=== PATIENT | female | born 1955 | race Caucasian/White ===

== ENCOUNTER → 2021-04-23 | Outpatient (CLI) | payer OTHER ==
--- NOTE | 2021-04-23 13:41 | KCIC ---
EXAMINATION: Magnetic resonance imaging (MRI) of the lumbar spine without contrast 04/23/2021 10:55 AM HISTORY: Lumbago with left sciatica. TECHNIQUE: Multiplanar multi-weighted MRI of the lumbar spine was performed without intravenous contr ast using the standard lumbar spine protocol. Contrast information: None administered. COMPARISON: None available. FINDINGS: There is 1 mm retrolisthesis of L1 on L2. 3 mm retrolisthesis of L2 on L3. 3 mm retrolisthesis of L3 on L4. There is 7 mm ventral listhesis of L4 on L5. There is disc desiccation from L2-L3 through L5-S 1. Modic type I endplate degenerative changes identified anteriorly at L2-L3. Modic type I endplate d egenerative changes identified at L5-S1. No acute fractures identified. Conus medullaris limits of L1 . Distal spinal cord signal intensity is normal in all sequences. Abdominal aorta is ectatic measurin g 2.3 cm. No suspicious retroperitoneal abnormality. Tarlov cyst identified at S2-S3 measuring 2.1 cm . T11-T12: There is a disc bulge with left foraminal disc protrusion. Moderate left and mild right neur oforaminal stenosis. Mild spinal canal stenosis. T12-L1: There is a disc bulge with central annular fissure. No significant facet arthropathy. No neur oforaminal or spinal canal stenosis. L1-L2: There is a circumferential disc bulge with right central disc extrusion. Mild facet arthropath y. Mild left neuroforaminal stenosis. Mild spinal canal stenosis. L2-L3: There is a circumferential disc bulge with right central disc protrusion. No significant facet arthropathy. Mild bilateral neuroforaminal stenosis. Mild spinal canal stenosis. L3-L4: There is a circumferential disc bulge with left far lateral disc protrusion. Mild facet arthro mike. Moderate left and moderate neuroforaminal stenosis. Mild spinal canal stenosis. L4-L5: There is moderate disc bulge. Severe facet arthropathy. There is an anteriorly and laterally p rojecting synovial cyst measuring 7 mm arising from the left facet joint. Moderate spinal canal steno sis. There is left lateral recess. Mild left neural foraminal stenosis. L5-S1: There is a circumferential disc bulge with left far lateral disc osteophyte complex. Moderate right and mild left neuroforaminal stenosis. Severe right and moderate left foraminal stenosis. No sp inal canal stenosis. IMPRESSION: Moderate degenerative changes of the lumbar spine as described in detail above. Electronically signed by: Vera Simeon MD (04/23/2021 1:38 PM) [id number]
== END ==
LOC: KCIC MRI 10:42
PROVIDERS: ATTEND Physician Assistant Medical
DX: M51.27 Other intervertebral disc displacement, lumbosacral region (principal); M25.78 Osteophyte, vertebrae; M48.07 Spinal stenosis, lumbosacral region; G96.191 Perineural cyst; M48.8X6 Other specified spondylopathies, lumbar region; M43.16 Spondylolisthesis, lumbar region; I77.811 Abdominal aortic ectasia; M54.42 Lumbago with sciatica, left side
CPT/HCPCS: 72148

== ENCOUNTER → 2021-05-27 | Outpatient (CLI) | payer OTHER ==
[~2021-05-27] MED LIST: ALBU2.5V8 IH; CRESTOR5 MG PO; ESCITALOPRAM OX10 MG PO; FLUT1DIS5 IH; HYDR-2765 PO; IOHEXOL 180 MG/ML 10 ML VIAL. ONE; LEVO75TA76 PO; OMEP40CA7 PO; methylPREDNISolone ACETATE 80 MG/ML VIAL. ONE
--- NOTE | 2021-05-27 14:29 | PDOC1 ---
INITIAL PAIN CONSULT DATE OF SERVICE: DOS: DATE: 05/27/21 TIME: 14:22 CHIEF COMPLAINT: Chief Complaint: Low back and left lower extremity pain HISTORY OF PRESENT ILLNESS: 65-year-old female presents with history of pain low back left lower extremity for about 6 months worse with some pain over the years in the low back and leg but much more significant over the past 6 months and more noticeable with it not going away with usual things like stretching and resting patient reports the pain is in the low back rating left lower extremity posterior gluteus lateral thigh anterior thigh anteromedial thigh medial knee and medial lower leg patient reports is worse with walking standing changing positions better with sitting or laying down but wakes her from sleep at least 2-3 times at night patient reports is not effective bowel bladder control but does affect ability to walk and she stumbled and fallen once because of the left leg being fatigued and weak and bruised her ribs on the right side when she fell patient been taking hydrocodone which does help but to some extent maybe 40 to 50% but only for limited time. Patient is also been trying [id number] Tylenol as well as Motrin but without significant reduction in pain with either of these. Patient scribes the pain as sharp and stabbing throbbing in the back shooting in the leg on the left side changes during the day worse with activity standing walking is a burning sensation in the back itself an aching sensation in the back especially when standing still for more than about 5 to 10 minutes the pain becomes excruciating. Patient can sit down to decrease the pain but take several minutes for her to get better. Patient rates her disability rating 0-10 10 being the worst as an 8 to 9 feet home responsibilities 8 with social activity 8-9 with occupation and life support activity 10 with sexual behavior and 10 with self-care activities. Patient has had some physical therapy in the distant past and is still doing some stretching 3 exercise but has had no formal therapies or other treatments at this time. Patient of MRI scan lumbar spine showing moderate degenerative changes most significant L4-5 with moderate spinal canal stenosis and left lateral recess stenosis with mild left neuroforaminal stenosis L5-S1 shows severe right and moderate left foraminal stenosis as well. Patient reports no bowel or bladder incontinence. PAST MEDICAL HISTORY: PMH: COPD, asthma, arthritis, cigarette smoking PREVIOUS SURGERIES: Past Surgical Hx: Tubal ligation 1982, appendectomy 2005 CURRENT MEDICATIONS: Current Meds: Active Scripts Medications Dose Route/Sig Max Daily Dose Days Date Category Advair 500-50 Diskus (Fluticasone/Salmeterol) 1 Each Disk.w.dev 1 Puff IH BID 05/27/21 Reported Omeprazole 40 Mg Capsule.dr 1 Cap PO DAILY 05/27/21 Reported Euthyrox (Levothyroxine Sodium) 75 Mcg Tablet 75 Mcg PO DAILY 05/27/21 Reported Proair Hfa Inhaler (Albuterol Sulfate) 8.5 Gm Hfa.aer.ad 2 Puff IH PRN Q4-6HRS PRN 21 05/27/21 Reported Escitalopram Oxalate 10 Mg Tablet 1 Tab PO DAILY 05/27/21 Reported Crestor (Rosuvastatin Calcium) 5 Mg Tablet 10 Mg PO HS 05/27/21 Reported Hydrocodone-Apap 7.5-325 (Hydrocodone Bit/Acetaminophen) 1 Tab Tablet 1 Tab PO PRN Q6HRS PRN 05/27/21 Reported ALLERGIES; Allergies: Coded Allergies: aspirin (Verified Allergy, Intermediate, Hives, 05/27/21) codeine (Verified Allergy, Intermediate, Rash, 05/27/21) morphine (Verified Allergy, Intermediate, Hives, 05/27/21) Uncoded Allergies: bandages (Allergy, Intermediate, Rash, 05/27/21) FAMILY HISTORY: Family Hx: No major medical problems or conditions that she is aware of. SOCIAL HISTORY: Social Hx: Patient is alcohol occasionally socially, smokes cigarettes approximate one third of a pack for the past 20 years continues to smoke, denies any illegal illicit or recreational drugs is single lives with her significant other and lives locally in [facility]. Patient works as a library circulation clerk in [place] and is on her feet most of her working shift. REVIEW OF SYSTEMS: ROS: Positive for those items mentioned in history of present illness, all systems are reviewed, otherwise negative ,and are complete full and well-documented on patient's chart. PHYSICAL EXAM: VS: Blood pressure is 131/63 pulse 88 respirations 18, temperature 99.0 F height is 5 feet 7 inches, weight is 158 pounds. PE: PHYSICAL EXAMINATION: GENERAL: The patient is awake, alert, oriented, appropriate, very pleasant in demeanor HEENT: Shows normocephalic, atraumatic. Extraocular movements are intact and symmetrical. Oral cavity: Mucous membranes moist and pink. Dentition is inta ct. NECK: Shows anterior throat supple without palpable lymphadenopathy noted. Swallow reflex symmetrical. CHEST: Shows normal on inspection. Breath sounds are clear bilaterally, distant and coarse but no rales or rhonchi or wheezes auscultated. HEART: Shows S1, S2 clear. No murmurs auscultated. ABDOMEN: Soft, nontender, nondistended. No palpable organomegaly is noted. No rebound or guarding demonstrated. BACK: Shows spine grossly in the midline. Normal-appearing cervical lordotic curvature. There is mildly increased thoracic kyphosis, some minor flattening of the lumbar lordotic curvature. Lumbar paraspinous muscles show symmetrical on inspection, on palpation shows some moderate tenderness diffusely throughout the upper, middle and lower distribution of the paraspinous muscles bilaterally and also into the lower thoracic paraspinous musculature, firm and tender, but without specific trigger points, without radiation of pain. The patient has good rotational motion of the lumbar spine, both laterally as well as extension and flexion without significant difficulty. No tenderness over the spinous processes, sacrum or sacroiliac regions. EXTREMITIES: Lower extremities show deep tendon reflexes 2 per in the patellar and tendo calcaneus tendons. Motor exam is 5 on a scale of 5 with right dorsiflexion, extension, quadriceps and hamstring flexion and 4/5 on the left. Peripheral pulses are 1+ posterior tibial. No peripheral edema is noted bilaterally. Lower extremities are warm and dry to touch, equal in color and appearance. Straight leg raise noted to be positive on the left at approximate 40 degrees, decreased with knee flexion, right side is negative. Gaenslen's and Jett's maneuvers are negative bilaterally as well. The patient is able to stand, stand on her toes without significant difficulty loss of balance, walks with a normal-appearing gait slightly favoring the left lower extremity not use any assistive devices to ambulate such as canes or walkers. SKIN: Shows warm and dry, good turgor. No edema. No sores, rashes or bruising throughout. IMPRESSION: Impression: 65-year-old female with proximate 6-month history increasing pain low back left lower extremity radicular fashion. MRI scan lumbar spine as noted Arthritis COPD Plan: Options were discussed with patient including serve medical managements physical therapies and interventional techniques. Patient would like to pursue interventional techniques. We discussed a lumbar epidural steroid injection using description as well as anatomical models to describe the procedure. Risks were discussed including but not limited to: Bleeding, infection, possibility of epidural hematoma and subsequent neurological compromise, dural puncture, headaches, spinal cord and/or nerve damage, side effects of steroid medication, and poor results regarding pain control. Patient understands and wished to pro ceed. Patient will return to the clinic in approximately 2 weeks for follow-up, was counseled as to return appointment, activity level, and side effect to be aware of. Procedure is lumbar epidural steroid injection under local anesthetic using sterile prep and drape at the L4-5 level using C-arm fluoroscopic guidance in both AP and lateral views medications injected is 120 mg Depo-Medrol +10mL preservative-free normal saline and 2 mL contrast- condition at discharge is stable patient tolerated procedure well had no complications. JOSÉ MIGUEL TOM MD May 27, 2021 14:29
--- NOTE | 2021-05-27 14:30 | PDOC4 ---
Procedure Note: ICD 10 Code: ICD 10 Code: M54.16 M51.36 M 48.06 Procedure Note: Patient was consented for lumbar epidural steroid injection with fluoroscopic guidance. Risks were discussed including but not limited to: Bleeding, infection, possibility of epidural hematoma and subsequent neurological compromise, dural puncture, headaches, spinal cord and/or nerve damage, side effects of steroid medication, and poor results regarding pain control. Patient understands and wished to proceed. Procedure is lumbar epidural steroid injection under local anesthetic using naresh rile prep and drape at the L4-5 level using C-arm fluoroscopic guidance in both AP and lateral views medications injected is 120 mg Depo-Medrol +10mL preservative-free normal saline and 2 mL contrast- condition at discharge is stable patient tolerated procedure well had no complications. JOSÉ MIGUEL TOM MD May 27, 2021 14:30
== END | disposition home or self-care (01) ==
LOC: PNCL 12:58
PROVIDERS: ATTEND Anesthesiology
DX: M51.16 Intervertebral disc disorders with radiculopathy, lumbar region (principal); M48.061 Spinal stenosis, lumbar region without neurogenic claudication; Z79.899 Other long term (current) drug therapy; Z88.5 Allergy status to narcotic agent; Z88.6 Allergy status to analgesic agent; Z88.8 Allergy status to other drugs, medicaments and biological substances
CPT/HCPCS: 62323; J1040; Q9965

== ENCOUNTER → 2021-06-10 | Outpatient (CLI) | payer OTHER ==
[~2021-06-10] MED LIST changes: +DEXAMETHASONE PRES.FREE 10 MG/ML VIAL. ONE; -methylPREDNISolone ACETATE 80 MG/ML VIAL. ONE
--- NOTE | 2021-06-10 14:11 | PDOC ---
Progress Note - Pain Clinic Date of Service: DOS: DATE: 06/10/21 TIME: 14:05 Diagnosis: Dx: Lumbar radiculopathy with lumbar degenerative disc disease and lumbar spinal stenosis History or Present Illness: HPI: 65-year-old female returns for follow-up status post lumbar epidural steroid injection May 27, 2021 patient did very well with about 50% improvement in the low back and left lower extremity pain patient reports new pain however in the mid back now mostly when she is standing and especially when she is preparing meals such as at her kitchen sink patient reports is becoming a burning searing pain in the low back which did not have before there was some pain across the lower back this is in the mid back she becoming more noticeable with time patient reports is better with sitting or lying down does not have disturbing her from sleep patient reports pain in the leg is significantly improved but still with some radiation the posterior gluteus lateral thigh anterior thigh medial thigh medial lower leg describes aching and sharp in the leg shooting in the leg burning and severe in the back on and off in intensity but again exacerbated by standing patient reports some mild spasms and cramping in the low back as well which are inconsistent patient reports it is a 6-7 on scale of ten, and is at its worst, and average and least and a 6-7 today as well. Patient reports no loss of motor function no bowel or bladder incontinence. Physical Exam: VS: Blood pressure is 162/77 pulse is eighty respirations sixteen temperature is 98.7 F height is 5 feet 7 inches weight is 163 pounds. PE: PHYSICAL EXAMINATION: GENERAL: The patient is awake, alert, oriented, appropriate, very pleasant demeanor HEENT: Shows normocephalic, atraumatic. Extraocular movements are intact and symmetrical. Oral cavity: Mucous membranes moist and pink. Dentition is intact. NECK: Shows anterior throat supple without palpable lymphadenopathy noted. Swallow reflex symmetrical. CHEST: Shows normal on inspection. Breath sounds are clear bilaterally, coarse but no rales or rhonchi auscultated. HEART: Shows S1, S2 clear. No murmurs auscultated. ABDOMEN: Soft, nontender, nondistended. No palpable organomegaly is noted. No rebound or guarding demonstrated. BACK: Shows spine grossly in the midline. Normal-appearing cervical lordotic curvature. There is slightly increased thoracic kyphosis, some mild flattening of the lumbar lordotic curvature. Lumbar paraspinous muscles show symmetrical on inspection, on palpation shows some moderate tenderness diffusely throughout the upper, middle and lower distribution of the paraspinous muscles without specific trigger points, without radiation of pain. The patient has good rotational motion of the lumbar spine, both laterally as well as extension and flexion without significant difficulty. No tenderness over the spinous processes, sacrum or sacroiliac regions. EXTREMITIES: Lower extremities show deep tendon reflexes 2+ in the patellar and tendo calcaneus tendons. Motor exam is five on a scale of 5 with right dorsiflexion, extension, quadriceps and hamstring flexion and four/5 on the left. Peripheral pulses are 1+ posterior tibial. No peripheral edema is noted bilaterally. Lower extremities are warm and dry. SKIN: Shows warm and dry, good turgor. No edema. No sores, rashes or bruising throughout. Procedure: Procedure: Options were discussed with the patient. Patient's old chart was reviewed as her current medication regimen updated her review of systems updated today as well. We will proceed with a lumbar epidural steroid injection today with fluoroscopic guidance. Risks were discussed including but not limited to: Bleeding, infection, possibility of epidural hematoma and subsequent neurological compromise, dural puncture, headaches, spinal cord and/or nerve damage, side effects of steroid medication, and poor results regarding pain control. Patient understands and wished to proceed. Patient will return to the clinic in approximate 2 weeks for follow-up, was counseled as to return appointment, active level, and side effects to be aware of. We discussed strengthening stretching exercises to do with her low and mid back as well as heat and massage applications patient also will take ibuprofen three times daily instead of intermittently as she had been previously to see if this may help the mid back pain as well. Medication Injected: Med Injected: Procedure is lumbar epidural steroid injection under local anesthetic using sterile prep and drape at the L4-5 level using C-arm fluoroscopic guidance in both AP and lateral views medications injected is 20 mg dexamethasone +10mL preservative-free normal saline and 2 mL contrast- condition at discharge is stable patient tolerated procedure well had no complications. Condition at Discharge: Condition at Discharge: Condition at discharge stable, paced tolerated procedure well and had no complications. JOSÉ MIGUEL TOM MD Jun 10, 2021 14:11
--- NOTE | 2021-06-10 14:12 | PDOC4 ---
Procedure Note: ICD 10 Code: ICD 10 Code: M54.16 M51.36 M4 8.06 Procedure Note: Patient was consented for lumbar epidural steroid injection with fluoroscopic guidance. Risks were discussed including but not limited to: Bleeding, infection, possibility of epidural hematoma and subsequent neurological compromise, dural puncture, headaches, spinal cord and/or nerve damage, side effects of steroid medication, and poor results regarding pain control. Patient understands and wished to proceed. Procedure is lumbar epidural steroid injection under local anesthetic using naresh rile prep and drape at the L4-5 level using C-arm fluoroscopic guidance in both AP and lateral views medications injected is 20 mg dexamethasone +10mL preservative-free normal saline and 2 mL contrast- condition at discharge is stable patient tolerated procedure well had no complications. JOSÉ MIGUEL TOM MD Jun 10, 2021 14:12
== END | disposition home or self-care (01) ==
LOC: PNCL 12:49
PROVIDERS: ATTEND Anesthesiology
DX: M51.16 Intervertebral disc disorders with radiculopathy, lumbar region (principal); M48.061 Spinal stenosis, lumbar region without neurogenic claudication; Z79.899 Other long term (current) drug therapy; Z88.5 Allergy status to narcotic agent; Z88.6 Allergy status to analgesic agent; Z88.8 Allergy status to other drugs, medicaments and biological substances
CPT/HCPCS: 62323; J1100; Q9965

== ENCOUNTER → 2021-07-09 | Outpatient (CLI) | payer OTHER ==
--- NOTE | 2021-07-09 12:04 | PDOC ---
Progress Note - Pain Clinic Date of Service: DOS: DATE: 07/09/21 TIME: 12:01 Diagnosis: Dx: Lumbar radiculopathy with lumbar degenerative disease and lumbar spinal stenosis History or Present Illness: HPI: 65-year-old female returns for follow-up status post lumbar epidural steroid injection x2 last seen June 10, 2019 patient did very well about 60% improvement overall with pain in the low back and left lower extremity. Patient reports the pain is returning however in the low back and left leg posterior gluteus posterior lateral thigh lateral anterior thigh anteromedial thigh into the knee on the left side initially doing much better distance walking doing household activities try with greater ease and comfort as well as standing for prolonged periods and using less of her oral pain medications as well but now the pain is returning she is back to near baseline patient reports is an 8-9 at all times average worst and least is 8-[address] is sharp and dull in the back burning stabbing the leg radiating and shooting and worse with standing walking changing positions patient reports is better with laying down but is been waking her from sleep about every 4-5 hours once again recently. Patient reports no bowel or bladder incontinence. Physical Exam: VS: Blood pressure is 136/97 pulse 90 respirations 18 temperature 98.6 F height 5 feet 7 inches weight 164 pounds. PE: PHYSICAL EXAMINATION: GENERAL: The patient is awake, alert, oriented, appropriate, very pleasant in demeanor HEENT: Shows normocephalic, atraumatic. Extraocular movements are intact and symmetrical. Oral cavity: Mucous membranes moist and pink. Dentition is intact. NECK: Shows anterior throat supple without palpable lymphadenopathy noted. Sw allow reflex symmetrical. CHEST: Shows normal on inspection. Breath sounds are clear bilaterally, no rales rhonchi or wheezes. HEART: Shows S1, S2 clear. No murmurs auscultated. ABDOMEN: Soft, nontender, nondistended. No palpable organomegaly is noted. BACK: Shows spine grossly in the midline. Normal-appearing cervical lordotic curvature. There is slightly increased thoracic kyphosis, some mild flattening of the lumbar lordotic curvature. Lumbar paraspinous muscles show symmetrical on inspection, on palpation shows some moderate tenderness diffusely throughout the upper, middle and lower distribution of the paraspinous muscles without specific trigger points, without radiation of pain. The patient has good rotational motion of the lumbar spine, both laterally as well as extension and flexion without significant difficulty. EXTREMITIES: Lower extremities show deep tendon reflexes 2+ in the patellar and tendo calcaneus tendons. Motor exam is 5 on a scale of 5 with right dorsiflexion, extension, quadriceps and hamstring flexion and 4/5 on the left. Peripheral pulses are 1+ posterior tibial. No peripheral edema is noted bilater ally. Lower extremities are warm and dry. SKIN: Shows warm and dry, good turgor. No edema. No sores, rashes or bruising throughout. Procedure: Procedure: Options were discussed with the patient. Patient's old chart was reviewed as was her current medication regimen updated, and current review of systems updated today as well. We will proceed with a lumbar epidural steroid injection today with fluoroscopic guidance. Risks were discussed including but not limited to: Bleeding, infection, possibility of epidural hematoma and subsequent neurological compromise, dural puncture, headaches, spinal cord and/or nerve damage, side effects of steroid medication, and poor results regarding pain control. Patient understands and wished to proceed. Patient will return to clinic in approximately 2 weeks for follow-up, was counseled as to return appointment, activity level, and side effects to be aware of. Medication Injected: Med Injected: Procedure is lumbar epidural steroid injection under local anesthetic using sterile prep and drape at the L4-5 level using C-arm fluoroscopic guidance in both AP and lateral views medications injected is 20 mg dexamethasone +10mL preservative-free normal saline and 2 mL contrast- condition at discharge is stable patient tolerated procedure well had no complications. Condition at Discharge: Condition at Discharge: Condition at discharge stable, paced tolerated procedure well and had no c omplications. JOSÉ MIGUEL TOM MD Jul 09, 2021 12:03
--- NOTE | 2021-07-09 12:04 | PDOC4 ---
Procedure Note: ICD 10 Code: ICD 10 Code: M54.16 M51.36 M4 8.06 Procedure Note: Patient was consented for lumbar epidural steroid injection with fluoroscopic guidance. Risks were discussed including but not limited to: Bleeding, infection, possibility of epidural hematoma and subsequent neurological compromise, dural puncture, headaches, spinal cord and/or nerve damage, side effects of steroid medication, and poor results regarding pain control. Patient understands and wished to proceed. Procedure is lumbar epidural steroid injection under local anesthetic using naresh rile prep and drape at the L4-5 level using C-arm fluoroscopic guidance in both AP and lateral views medications injected is 20 mg dexamethasone +10mL preservative-free normal saline and 2 mL contrast- condition at discharge is stable patient tolerated procedure well had no complications. JOSÉ MIGUEL TOM MD Jul 09, 2021 12:04
--- NOTE | 2021-07-14 16:17 | FMN ---
PT PROBLEMS Addendum for visit of July 09, 2021 History of present illness statement should read: last seen 06/10/2021 JOSÉ MIGUEL TOM MD Jul 14, 2021 16:17
== END | disposition home or self-care (01) ==
LOC: PNCL 10:38
PROVIDERS: ATTEND Anesthesiology
DX: M51.16 Intervertebral disc disorders with radiculopathy, lumbar region (principal); M48.061 Spinal stenosis, lumbar region without neurogenic claudication; Z79.899 Other long term (current) drug therapy; Z88.5 Allergy status to narcotic agent; Z88.6 Allergy status to analgesic agent; Z88.8 Allergy status to other drugs, medicaments and biological substances
CPT/HCPCS: 62323; J1100; Q9965